=== PATIENT | female | born 1960 | race Caucasian/White ===

== ENCOUNTER 2018-05-25 13:05 | Emergency (ER) | payer OTHER ==
[2018-05-25 13:12] VITALS: BP 144/79; PULSE 86; RESP 18; TEMP 98.6; O2SAT 97
[2018-05-25] MEDS ORDERED: Lidocaine 5% Patch TD STA (13:28)
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
[2018-05-25] MEDS ORDERED: Lidocaine 5% Patch TD ONE (13:35)
== END 2018-05-25 13:58 | disposition home or self-care (01) ==
LOC: C.ER 13:05
DX: S23.3XXA Sprain of ligaments of thoracic spine, initial encounter (principal); V43.52XA Car driver injured in collision with other type car in traffic accident, initial encounter
CPT/HCPCS: 96372; 99283; J1885